=== PATIENT | female | born 1965 | race Caucasian/White ===

== ENCOUNTER 2019-03-06 23:30 | Emergency (ER) | payer MEDICAID ==
[~2019-03-06] VITALS: Ht 170.2 cm; Wt 102.0 kg
[2019-03-07 01:16] LABS: HEMATOCRIT. 36.8 % (36.0-48.0); HEMOGLOBIN. 12.4 g/dL (12.0-16.0); LYMPHOCYTES % 31.4 % (20.0-50.0); MEAN CORPUSCULAR HEMOGLOBIN 26.9 pg (28.0-32.0); NEUTROPHILS % 57.9 % (40.0-76.0)
[2019-03-07 01:26] LABS: BASOPHILS % 0.7 % (0.0-2.0); EOSINOPHILS % 3.9 % (0.0-5.0); MEAN PLATELET VOLUME 7.2 fl (7.4-10.4); MONOCYTES % 6.1 % (2.0-8.0); PLATELET 296 x1000/uL (130-400); RED CELL DISTRIBUTION WIDTH 15.5 % (11.6-14.6)
[2019-03-07] MEDS ORDERED: ACETAMINOPHEN WITH CODEINE 300/30MG TABLET PO STA (01:39)
[2019-03-07 01:42] LABS: CHLORIDE 107 mEq/L (98-107)
[2019-03-07 03:53] VITALS: BP 158/81
== END 2019-03-07 03:56 | disposition home or self-care (01) ==
LOC: ER 23:30
DX: M79.671 Pain in right foot (principal); M25.512 Pain in left shoulder; E11.9 Type 2 diabetes mellitus without complications; I10 Essential (primary) hypertension
CPT/HCPCS: 36415; 71045; 73030; 73610; 80048; 82962; 99284

== ENCOUNTER 2019-11-23 15:44 | Emergency (ER) | payer MEDICAID ==
[~2019-11-23] VITALS: Ht 165.1 cm; Wt 101.0 kg
[2019-11-23] MEDS ORDERED: ONDANSETRON 4MG ODT PO ONE (16:00)
[2019-11-23] MEDS ORDERED: ACETAMINOPHEN 500MG TABLET PO ONE (16:00)
[2019-11-23 17:31] VITALS: BP 133/86
== END 2019-11-23 17:46 | disposition home or self-care (01) ==
LOC: ER 15:44
DX: U07.1 COVID-19 (principal); E11.9 Type 2 diabetes mellitus without complications; I10 Essential (primary) hypertension
CPT/HCPCS: 71045; 99284; C9803; Q0162; U0003; 99283